=== PATIENT | female | born 1955 | race Caucasian/White ===

== ENCOUNTER 2018-11-08 05:12 | Inpatient (IN) | payer OTHER ==
[2018-11-08] VITALS (586 sets, daily range): BP systolic 148–155; BP diastolic 86–95; PULSE 98–116; TEMP 98.8–98.9; O2SAT 64–100
[~2018-11-08] VITALS: Ht 162.6 cm; Wt 110.9 kg
[2018-11-08] MEDS ORDERED: GLUCOPHAGE1000 MG PO (05:20)
[2018-11-08] MEDS ORDERED: PROTONIX20 MG PO (05:20)
[2018-11-08] MEDS ORDERED: COZAAR100 MG PO (05:20)
[2018-11-08] MEDS ORDERED: HCTZ 25MG TAB25 MG PO (05:20)
[2018-11-08] MEDS ORDERED: NORVASC 10MG10 MG PO (05:21)
[2018-11-08] MEDS ORDERED: NORMODYNE200 MG PO (05:21)
[2018-11-08] MEDS ORDERED: GLUCOTROL10 MG PO (05:21)
[2018-11-08] MEDS ORDERED: REQUIP 0.5MG0.5 MG PO (05:21)
[2018-11-08] MEDS ORDERED: ZOLOFT 100MG100 MG PO (05:22)
[2018-11-08] MEDS ORDERED: AMBIEN 10MG10 MG PO (05:22)
[2018-11-08] MEDS ORDERED: LANTUS100 U/ML SQ (05:22)
[2018-11-08] MEDS ORDERED: DESYREL 50MG50 MG PO (05:22)
[2018-11-08 05:40] LABS: BASO # 0.1 (0.0-0.2); BASO % 0.6 % (0.0-2.0); EOS # 0.3 (0.0-0.7); EOS % 2.1 % (0-4.0); GRAN # 9.6 (1.4-6.5); GRAN % 79.6 % (42.2-75.2); HEMOGLOBIN 11.7 g/dl (12.5-16.0); LYMPH # 1.4 (1.2-3.4); LYMPH % 11.2 % (20.0-51.0); MEAN CELL VOLUME 84 fl (80.0-100.0); MEAN CORPUSCULAR HEMOGLOBIN 28 pg (27.0-31.0); MEAN CORPUSCULAR HGB CONC 33 g/dl (33.0-37.0); MEAN PLATELET VOLUME 9.3 fl (7.4-10.4); MONO # 0.8 (0.1-0.6); MONO % 6.2 % (1.7-9.3); PLATELET COUNT 246 K/mm3 (130-400); RED BLOOD COUNT 4.24 M/mm3 (4.10-5.30); REDCELL DISTRIBUTION WIDTH-CV 12.7 % (11.5-14.5)
[2018-11-08 05:43] LABS: HEMATOCRIT 35.8 % (37.0-47.0)
[2018-11-08 05:50] LABS: ALBUMIN 3.7 gm/dL (3.5-5.0); BILIRUBIN,TOTAL 0.5 mg/dL (0.0-1.0); CALCIUM 9.3 mg/dL (8.4-10.2); CREATININE, serum 1.46 (0.52-1.25); POTASSIUM 4.4 mmol/L (3.4-5.0); TOTAL PROTEIN 7.1 gm/dL (6.4-8.2)
[2018-11-08 10:30] LABS: ARTERIAL BLD GAS O2 SATURATION 97.8 % (92-100); ARTERIAL BLD GAS TCO2 CT 25.9; ARTERIAL BLOOD GAS BASE EXCESS -0.1 (-2-2); ARTERIAL BLOOD GAS HCO3 24.6 meq/L (22-26); ARTERIAL BLOOD GAS PCO2 40.6 mmHg (35-45)
--- NOTE | 2018-11-08 13:30 | NUR ---
PATIENT ARRIVES TO ICU. SHE IS ORIENTED TO ROOM AND CALL LIGHT WITHIN REACH. ASSESSMENT COMPLETED. SHE IS ON 5L O2 VIA OXYMASK. WILL CONTINUE TO MONITOR
--- NOTE | 2018-11-08 15:00 | NUR ---
PATIENT HAS BEEN RESTING THIS AFTERNOON. SHE DENIES WANT TO EAT LUNCH. WILL CONTINUE TO MONITOR.
--- NOTE | 2018-11-08 18:15 | NUR ---
PATIENT TACHY AND IRREGULAR ON TELE. EKG OBTAINED AND RESULTS CALLED TO ALESSANDRO FRAGOSO. SHE STATES SHE WILL PLACE ORDERS ON THIS PATIENT.
[2018-11-08 18:49] LABS: BASO # 0.1 (0.0-0.2); BASO % 0.4 % (0.0-2.0); EOS # 0.1 (0.0-0.7); EOS % 1.1 % (0-4.0); GRAN # 8.9 (1.4-6.5); GRAN % 76.7 % (42.2-75.2); HEMATOCRIT 37.6 % (37.0-47.0); HEMOGLOBIN 12.4 g/dl (12.5-16.0); LYMPH # 1.6 (1.2-3.4); MEAN CELL VOLUME 83 fl (80.0-100.0); MEAN CORPUSCULAR HEMOGLOBIN 27 pg (27.0-31.0); MEAN CORPUSCULAR HGB CONC 33 g/dl (33.0-37.0); MEAN PLATELET VOLUME 9.4 fl (7.4-10.4); MONO # 0.9 (0.1-0.6); MONO % 7.3 % (1.7-9.3); PLATELET COUNT 245 K/mm3 (130-400); RED BLOOD COUNT 4.53 M/mm3 (4.10-5.30); REDCELL DISTRIBUTION WIDTH-CV 12.8 % (11.5-14.5)
[2018-11-08 18:59] LABS: CALCIUM 9.6 mg/dL (8.4-10.2); CREATININE, serum 1.54 (0.52-1.25); MAGNESIUM 1.7 mg/dL (1.6-2.3); POTASSIUM 3.7 mmol/L (3.4-5.0)
--- NOTE | 2018-11-08 19:00 | NUR ---
CARDIZEM AND HEPARIN GTTS STARTED WITH BOLUSES. VERIFIED WITH ANOTHER RN AT THIS TIME.
[2018-11-08 19:04] LABS: PROTHROMBIN TIME 11.9 SECONDS (9.7-12.8)
[2018-11-08 19:06] LABS: PARTIAL THROMBOPLASTIN TIME 34.6 SECONDS (26.0-37.0)
--- NOTE | 2018-11-08 19:45 | NUR ---
REPORT GIVEN TO HENRIK NIETO
--- NOTE | 2018-11-08 19:45 | NUR ---
Bedside report received from HENRIK Castillo. Wilma confirmed. Transfer of care at this time.
--- NOTE | 2018-11-08 20:00 | NUR ---
Patient is awake in bed with sister at bedside. Patient is alert and oriented and able to answer questions. She does have oxymask on currently. Patient has no complaints of pain. Assessment complete. Lungs are clear in upper ocampo with diminished bases. HR and rhythm are irregular as patient is in afib. First heart sound heard. Bowel sounds are active x4. Patient gets up to the restroom with standby assist. She is steady on her feet. Vitals have remained stable with cardizem drip continuing. Patient has no further needs at this time. Will continue to monitor. Call light within reach.
--- NOTE | 2018-11-08 22:35 | NUR ---
Dr. Vera at the bedside. States he wants amiodarone started and Cardizem stopped. Orders to be entered.
--- NOTE | 2018-11-08 23:30 | NUR ---
New IV site started in left hand as heparin and amiodarone are not compatible.
[2018-11-09] VITALS (1394 sets, daily range): BP systolic 114–123; BP diastolic 61–86; PULSE 64–105; TEMP 97.6–98.8; O2SAT 64–100
--- NOTE | 2018-11-09 | NUR ---
Patient awake at this time and up to the restroom. Assisted patient back to bed and BiPAP replaced. Vitals obtained and remain stable. Patient has no complaints of pain. No other needs at this time. Will continue to monitor. Call light within reach.
--- NOTE | 2018-11-09 04:00 | NUR ---
Patient asleep at this time. Awakens to name. Vitals obtain and remain stable. Patient is still in afib. Patient did have an episode of incontinence in the bed. Linens changed. Patient has no complaints of pain. She would like to continue sleeping. No further needs. Will continue to monitor. Call light within reach.
--- NOTE | 2018-11-09 04:33 | NUR ---
Hepxa called from lab with value of 1.10. Drip stopped. To be stopped for 2 hours then hepxa to be redrawn with PTT. Orders entered.
[2018-11-09 04:40] LABS: BASO # 0.1 (0.0-0.2); BASO % 0.6 % (0.0-2.0); EOS # 0.2 (0.0-0.7); EOS % 2.6 % (0-4.0); GRAN # 5.6 (1.4-6.5); HEMOGLOBIN 11.1 g/dl (12.5-16.0); LYMPH # 2.7 (1.2-3.4); LYMPH % 28.5 % (20.0-51.0); MEAN CELL VOLUME 84 fl (80.0-100.0); MEAN CORPUSCULAR HEMOGLOBIN 28 pg (27.0-31.0); MEAN CORPUSCULAR HGB CONC 33 g/dl (33.0-37.0); MEAN PLATELET VOLUME 9.1 fl (7.4-10.4); MONO # 0.8 (0.1-0.6); MONO % 8.1 % (1.7-9.3); PLATELET COUNT 238 K/mm3 (130-400); RED BLOOD COUNT 3.99 M/mm3 (4.10-5.30); REDCELL DISTRIBUTION WIDTH-CV 12.9 % (11.5-14.5)
[2018-11-09 04:45] LABS: HEMATOCRIT 33.3 % (37.0-47.0)
[2018-11-09 04:48] LABS: ALBUMIN 3.7 gm/dL (3.5-5.0); BILIRUBIN,TOTAL 0.8 mg/dL (0.0-1.0); CALCIUM 9.2 mg/dL (8.4-10.2); CREATININE, serum 1.75 (0.52-1.25); POTASSIUM 3.2 mmol/L (3.4-5.0); TOTAL PROTEIN 7.1 gm/dL (6.4-8.2)
--- NOTE | 2018-11-09 07:20 | NUR ---
Bedside report given to HENRIK Chaidez. All medications and lines reviewed. transfer of care at this time
[2018-11-09 07:49] LABS: PARTIAL THROMBOPLASTIN TIME 19.7 SECONDS (26.0-37.0)
--- NOTE | 2018-11-09 08:00 | NUR ---
Heparin gtt restarted at 1650 units/hr=16.5ml/hr verified by HENRIK Castillo.
--- NOTE | 2018-11-09 08:00 | NUR ---
Assessment complete, patient resting quietly in bed on bipap.
--- NOTE | 2018-11-09 08:42 | NUR ---
SW attempted to meet with the patient, but due to the patient's condition was unable. SW will attempt at a later time.
--- NOTE | 2018-11-09 09:24 | NUR ---
SW met with the patient to discuss a discharge plan. The pt lives in [place] with a nephew, Saman. The pt has a CPAP and no other DME and reports independence with ADLs. The pt's PCP is Dr. Tramaine Azevedo in [place], [place]. The pt receives her medications from [facility] and reports she may need a medication voucher. The pt is self-pay. Pt reports she has applied for disablity but was denied and she is appealing. The pt does not have advanced directives in the EMR but was interested in obtaining a DPOA-HC. SW provided the form. The pt plans to return home upon discharge. SW will continue to follow. Solitario (sister) Saman (nephew)
--- NOTE | 2018-11-09 15:15 | NUR ---
Patient converted to SR.
--- NOTE | 2018-11-09 19:07 | NUR ---
Bedside report given to HENRIK Maher.
--- NOTE | 2018-11-09 19:10 | NUR ---
Bedside report received from HENRIK Chaidez
--- NOTE | 2018-11-09 20:00 | NUR ---
Patient is awake in bed talking to her sister and nephew who are at bedside. Patient is alert and oriented x4. No complaints of pain and no signs of distress. Assessment complete. Lungs are diminished in all ocampo with upper lobes being clear. HR and rhythm are regular and patient has an audible murmur. Bowel sounds are active x4. Discussed with family the patient's afib and how it can cause the pulmonary edema she is having, spoke about the ablation procedure she had and possible need for PT if patient is having trouble with endurance. Patient has no further needs at this time. Will continue to monitor. Call light within reach.
[2018-11-10] VITALS (723 sets, daily range): BP systolic 118–147; BP diastolic 56–83; PULSE 60–76; TEMP 97.6–98.5; O2SAT 80–100
--- NOTE | 2018-11-10 | NUR ---
Patient asleep on the BiPAP at this time. Awakens to name. No complaints of pain or signs of distress. Vitals obtained and remain WNL. Patient has no further needs at this time. Will continue to monitor. Call light within reach.
[2018-11-10 03:10] LABS: BASO # 0.1 (0.0-0.2); BASO % 0.6 % (0.0-2.0); EOS # 0.4 (0.0-0.7); EOS % 3.3 % (0-4.0); GRAN # 7.1 (1.4-6.5); GRAN % 61.1 % (42.2-75.2); HEMOGLOBIN 11.2 g/dl (12.5-16.0); LYMPH # 2.9 (1.2-3.4); LYMPH % 24.7 % (20.0-51.0); MEAN CELL VOLUME 84 fl (80.0-100.0); MEAN CORPUSCULAR HEMOGLOBIN 28 pg (27.0-31.0); MEAN CORPUSCULAR HGB CONC 33 g/dl (33.0-37.0); MEAN PLATELET VOLUME 9.2 fl (7.4-10.4); MONO # 1.2 (0.1-0.6); PLATELET COUNT 257 K/mm3 (130-400); RED BLOOD COUNT 4.05 M/mm3 (4.10-5.30); REDCELL DISTRIBUTION WIDTH-CV 12.8 % (11.5-14.5)
[2018-11-10 03:14] LABS: HEMATOCRIT 33.8 % (37.0-47.0)
[2018-11-10 03:22] LABS: CALCIUM 9.2 mg/dL (8.4-10.2); CREATININE, serum 2.45 (0.52-1.25); MAGNESIUM 2.1 mg/dL (1.6-2.3); POTASSIUM 3.3 mmol/L (3.4-5.0)
--- NOTE | 2018-11-10 04:00 | NUR ---
Patient continues to rest comfortably at this time on the BiPAP. Awakens to name. Vitals obtained. Has no complaints of pain or signs of distress. Vitals remain WNL. Will continue to monitor. Call light within reach.
--- NOTE | 2018-11-10 07:17 | NUR ---
Report from HENRIK Maher.
--- NOTE | 2018-11-10 07:20 | NUR ---
Bedside report given to HENRIK Chaidez
--- NOTE | 2018-11-10 07:30 | NUR ---
Assessment complete, patient denies needs at this time, call light within reach.
--- NOTE | 2018-11-10 10:00 | NUR ---
O2 sats 99% on 3L/NC, O@ decreased to 2L/NC.
--- NOTE | 2018-11-10 10:25 | NUR ---
Initial visit; Patient thanked Finance Broker for looking in on her and offering prayer and additional spiritual care.
--- NOTE | 2018-11-10 13:37 | NUR ---
Patient walking in halls with PT.
--- NOTE | 2018-11-10 15:01 | NUR ---
Patient resting quietly in bed, denies needs at this time, dulce light within reach.
--- NOTE | 2018-11-10 15:39 | NUR ---
The pt is to transfer to medical floor. SW to follow for discharge recommendations.
--- NOTE | 2018-11-10 19:14 | NUR ---
Bedside report given to HENRIK Becerra.
--- NOTE | 2018-11-10 20:25 | NUR ---
Patient request for ELEMENTARY CLASSROOM TEACHER to come back , she had a visitor. Patient will call ELEMENTARY CLASSROOM TEACHER when ready
[2018-11-11] VITALS (312 sets, daily range): BP systolic 139–155; BP diastolic 48–62; PULSE 62–76; TEMP 97.7–98.5; O2SAT 72–100
[2018-11-11 05:33] LABS: CALCIUM 9.2 mg/dL (8.4-10.2); CREATININE, serum 2.22 (0.52-1.25); POTASSIUM 3.6 mmol/L (3.4-5.0)
--- NOTE | 2018-11-11 07:25 | NUR ---
BEDSIDE REPORT TO HENRIK LYNCH.
--- NOTE | 2018-11-11 07:30 | NUR ---
Bedside report received from HENRIK Becerra.
--- NOTE | 2018-11-11 08:45 | NUR ---
Assessment completed. Pt watching tv in bed. Denies any pain at this time. Pt states she feels better than when she first came to the hospital. Pt denies any SOB, on RA, sats greater than 90%. Pt able to move around room independently. Breakfast ordered at this time. Discussed plan of care r/t doctors rounding and medications this shift. Pt verbalized understanding.
--- NOTE | 2018-11-11 11:08 | NUR ---
Follow-up visit; Patient doing well and thanked Real Estate Sales Agent for looking in on her and offering support and spiritual care.
--- NOTE | 2018-11-11 12:00 | NUR ---
Pt sitting on side of bed, watching tv. Lunch ordered. Pt has no complaints at this time. VSS. Call light in reach.
--- NOTE | 2018-11-11 16:18 | NUR ---
Report given to Medical floor RnSurekha.
--- NOTE | 2018-11-11 16:30 | NUR ---
PT ADMITTED TO FLOOR AT THIS TIME.
--- NOTE | 2018-11-11 16:30 | NUR ---
Pt transferred to room 308 via wheelchair. Pt in recliner. Call light in reach. Menu given to pt to order dinner. HENRIK Irby updated on pt status.
--- NOTE | 2018-11-11 19:00 | NUR ---
PT HAD UNEVENTFUL AFTERNOON AFTER ADMISSION. NO C/O PAIN. SITTING IN RECLINER. NO CONSENS OR ISSUES VOICED.
--- NOTE | 2018-11-11 21:30 | NUR ---
PT RESTING IN BED A+OX4. REPORTS NO PAIN AT THIS TIME. BIPAP ON. SHIFT ASSESSMENT COMPLETE. NO CONCERNS. HEART MURMUR NOTED. VSS. NO NEEDS AT THIS TIEM. CALL LIGHT IN REACH
--- NOTE | 2018-11-12 03:14 | NUR ---
pt reported a headache prn tylenol ordered and given. pt sleeping since. vss. reports no needs call light in reach
[2018-11-12 03:20] VITALS: BP 133/43; PULSE 73; TEMP 98.1
--- NOTE | 2018-11-12 05:43 | NUR ---
PT HAD AN UNEVENTFUL NIGHT. TYLENOL GIVEN FOR 3/10 OROZCO., PT SLEPT MOST OF THE NIGHT. CPAP ON DURING NIGHT. SLIGHT SWELLING IN BILATERAL LEGS. NO CONCERNS AT THIS TIME. CALL LIGHT IN REACH.
[2018-11-12 05:56] LABS: HEMOGLOBIN 10.5 g/dl (12.5-16.0); MEAN CELL VOLUME 84 fl (80.0-100.0); MEAN CORPUSCULAR HEMOGLOBIN 28 pg (27.0-31.0); MEAN CORPUSCULAR HGB CONC 33 g/dl (33.0-37.0); MEAN PLATELET VOLUME 9.4 fl (7.4-10.4); PLATELET COUNT 268 K/mm3 (130-400); RED BLOOD COUNT 3.78 M/mm3 (4.10-5.30); REDCELL DISTRIBUTION WIDTH-CV 12.8 % (11.5-14.5)
[2018-11-12 05:57] LABS: HEMATOCRIT 31.9 % (37.0-47.0)
[2018-11-12 06:04] LABS: CALCIUM 9.3 mg/dL (8.4-10.2); CREATININE, serum 2.14 (0.52-1.25)
--- NOTE | 2018-11-12 06:55 | NUR ---
report given to akhil dumont. pt reports no needs
[2018-11-12 07:54] VITALS: BP 139/50; PULSE 63; TEMP 98
[2018-11-12] MEDS ORDERED: ASPIRIN E.C. 8181 MG PO (11:58)
[2018-11-12] MEDS ORDERED: ELIQUIS 2.5 PO (11:59)
[2018-11-12] MEDS ORDERED: CORDARONE200 MG/TAB PO (11:59)
[2018-11-12] MEDS ORDERED: HCTZ 25MG TAB25 MG PO (12:01)
[2018-11-12] MEDS ORDERED: GLUCOPHAGE1000 MG PO (12:01)
[2018-11-12] MEDS ORDERED: NORMODYNE200 MG PO (12:01)
[2018-11-12] MEDS ORDERED: LANTUS100 U/ML SQ (12:01)
[2018-11-12] MEDS ORDERED: COZAAR100 MG PO (12:01)
[2018-11-12] MEDS ORDERED: ZOLOFT 100MG100 MG PO (12:01)
[2018-11-12] MEDS ORDERED: REQUIP 0.5MG0.5 MG PO (12:01)
[2018-11-12] MEDS ORDERED: GLUCOTROL10 MG PO (12:01)
[2018-11-12] MEDS ORDERED: NORVASC 10MG10 MG PO (12:01)
--- NOTE | 2018-11-12 16:35 | NUR ---
Pt discharge instructions discussed and reviewed, all questions answered. pt verbalizes understanding, no other questions. RAC INT IV discontinued, catheter tip intact, no complications. Denies other needs.
--- NOTE | 2018-11-12 16:36 | NUR ---
pt escorted out via wheelchair by Jane.
--- NOTE | 2018-11-14 10:26 | NUR ---
sheltered workshop worker provided Maday at [facility] with a Free 30 day supply card for Eloquis.
== END 2018-11-12 16:37 | disposition home or self-care (01) | DRG 189 ==
LOC: COL.ER 05:12 → ICU 07:51 → MEDICAL 11-11 17:05
PROVIDERS: Emergency Medicine; Internal Medicine Critical Care Medicine; Nurse Practitioner Family; Physician Assistant; ADMIT Internal Medicine
DX: J96.01 Acute respiratory failure with hypoxia (principal); J81.0 Acute pulmonary edema; I50.33 Acute on chronic diastolic (congestive) heart failure; Z68.41 Body mass index [BMI] 40.0-44.9, adult; I13.0 Hypertensive heart and chronic kidney disease with heart failure and stage 1 through stage 4 chronic kidney disease, or unspecified chronic kidney disease; I38 Endocarditis, valve unspecified; N17.9 Acute kidney failure, unspecified; E78.5 Hyperlipidemia, unspecified; G47.33 Obstructive sleep apnea (adult) (pediatric); I34.0 Nonrheumatic mitral (valve) insufficiency; I48.0 Paroxysmal atrial fibrillation; I35.0 Nonrheumatic aortic (valve) stenosis; K21.9 Gastro-esophageal reflux disease without esophagitis; I50.9 Heart failure, unspecified; E87.6 Hypokalemia; E11.22 Type 2 diabetes mellitus with diabetic chronic kidney disease; E11.65 Type 2 diabetes mellitus with hyperglycemia; N18.3 Chronic kidney disease, stage 3 (moderate); E66.9 Obesity, unspecified; G47.00 Insomnia, unspecified; G40.909 Epilepsy, unspecified, not intractable, without status epilepticus; Z79.4 Long term (current) use of insulin; Z88.0 Allergy status to penicillin; Z86.73 Personal history of transient ischemic attack (TIA), and cerebral infarction without residual deficits
CPT/HCPCS: 99222; 99223-AI; 99232-AI; 99233-AI; 99239; A4216; J0282; J0456; J0696; J1644; J1815; J1940; J3475; J7030; J7050; J7060; Q9967

== ENCOUNTER → 2018-11-14 | Outpatient (CLI) | payer OTHER ==
[~2018-11-14] MED LIST: AMBIEN 10MG10 MG PO; ASPIRIN E.C. 8181 MG PO; CORDARONE200 MG/TAB PO; COZAAR100 MG PO; DESYREL 50MG50 MG PO; ELIQUIS 2.5 PO; GLUCOPHAGE1000 MG PO; GLUCOTROL10 MG PO; HCTZ 25MG TAB25 MG PO; LANTUS100 U/ML SQ; NORMODYNE200 MG PO; NORVASC 10MG10 MG PO; PROTONIX20 MG PO; REQUIP 0.5MG0.5 MG PO; ZOLOFT 100MG100 MG PO
[2018-11-14 18:39] LABS: CALCIUM 9.8 mg/dL (8.4-10.2); CREATININE, serum 1.98 (0.52-1.25); POTASSIUM 4.1 mmol/L (3.4-5.0)
== END ==
LOC: COL.LAB 17:28
PROVIDERS: Internal Medicine
DX: J96.01 Acute respiratory failure with hypoxia (principal)

== ENCOUNTER 2018-12-06 23:49 | Observation (INO) | payer OTHER ==
[~2018-12-06] VITALS: Ht 162.6 cm; Wt 112.5 kg
[2018-12-07] VITALS (7 sets, daily range): BP systolic 126–155; BP diastolic 42–65; PULSE 57–72; TEMP 98–99
[2018-12-07 00:14] LABS: BASO # 0.1 (0.0-0.2); BASO % 0.7 % (0.0-2.0); EOS # 0.4 (0.0-0.7); EOS % 3.4 % (0-4.0); GRAN # 7.7 (1.4-6.5); GRAN % 68.6 % (42.2-75.2); HEMATOCRIT 32.8 % (37.0-47.0); HEMOGLOBIN 10.8 g/dl (12.5-16.0); LYMPH # 2.2 (1.2-3.4); LYMPH % 19.3 % (20.0-51.0); MEAN CELL VOLUME 84 fl (80.0-100.0); MEAN CORPUSCULAR HEMOGLOBIN 28 pg (27.0-31.0); MEAN CORPUSCULAR HGB CONC 33 g/dl (33.0-37.0); MEAN PLATELET VOLUME 8.8 fl (7.4-10.4); MONO # 0.9 (0.1-0.6); MONO % 7.6 % (1.7-9.3); PLATELET COUNT 293 K/mm3 (130-400); RED BLOOD COUNT 3.92 M/mm3 (4.10-5.30); REDCELL DISTRIBUTION WIDTH-CV 13.3 % (11.5-14.5)
[2018-12-07 00:19] LABS: INR 1.2 (0.8-3.0); PROTHROMBIN TIME 13.9 SECONDS (9.7-12.8)
[2018-12-07 00:20] LABS: ARTERIAL BLD GAS O2 SATURATION 92.8 % (92-100); ARTERIAL BLD GAS TCO2 CT 25.8; ARTERIAL BLOOD GAS BASE EXCESS 0.9 (-2-2); ARTERIAL BLOOD GAS HCO3 24.7 meq/L (22-26); ARTERIAL BLOOD GAS PCO2 36.2 mmHg (35-45); ARTERIAL BLOOD GAS pH 7.45 (7.35-7.45)
[2018-12-07 00:21] LABS: PARTIAL THROMBOPLASTIN TIME 41.8 SECONDS (26.0-37.0)
[2018-12-07 00:25] LABS: ALANINE AMINOTRANSFERASE 11 U/L (9-52); ALBUMIN 4.1 gm/dL (3.5-5.0); ALKALINE PHOSPHATASE 119 U/L (50-136); ANION GAP 11 mmol/L (7-16); AST,SGOT 19 U/L (15-37); BILIRUBIN,TOTAL 0.8 mg/dL (0.0-1.0); BLOOD UREA NITROGEN 37 mg/dL (7-17); CALCIUM 9.3 mg/dL (8.4-10.2); CARBON DIOXIDE 28 mmol/L (22-30); CHLORIDE 105 mmol/L (98-107); CREATININE, serum 1.93 (0.52-1.25); GLUCOSE 106 mg/dL (74-106); POTASSIUM 3.8 mmol/L (3.4-5.0); SODIUM 144 mmol/L (137-145); TOTAL PROTEIN 7.4 gm/dL (6.4-8.2)
[2018-12-07] MEDS ORDERED: CORDARONE200 MG/TAB PO (00:32)
[2018-12-07] MEDS ORDERED: NORMODYNE200 MG PO (00:33)
[2018-12-07 00:37] LABS: TROPONIN-I < 0.012 ng/mL (0.000-0.035)
[2018-12-07 02:05] LABS: COLLECTION METHOD CLEAN CATCH
[2018-12-07 02:15] LABS: PH 5 (5-8); SQUAMOUS EPITHELIAL 0-2 /hpf; URINE APPEARANCE Clear; URINE BACTERIA None Seen /hpf; URINE BILIRUBIN Negative (NEGATIVE); URINE BLOOD 1+ (NEGATIVE); URINE COLOR Yellow; URINE GLUCOSE Negative (NEGATIVE); URINE KETONE Negative (NEGATIVE); URINE LEUKOCYTE ESTERASE Negative (NEGATIVE); URINE NITRATE Negative (NEGATIVE); URINE PROTEIN(semi-quant) 1+ (NEGATIVE); URINE UROBILINOGEN Negative (NEGATIVE)
--- NOTE | 2018-12-07 11:35 | NUR ---
Initial visit; Patient thanked Direct Care Specialist for looking in on her and offering encouragement and prayer. Patient states she is feeling much better.
[2018-12-07 15:25] LABS: URINE PROTEIN:CREAT RATIO 0.39 (0.00-0.14)
--- NOTE | 2018-12-07 15:44 | NUR ---
LUANNE met with patient to discuss discharge planning. Patient lives independently at home with her nephew. Patient's PCP is Dr Rubio and she obtains prescriptions from [facility]. Patient reports she is on a program through [employer] that allows her medications to be low in cost or free. Patient does not have insurance but has applied for Medicaid. Patient does not use any DME or home health services at this time. SW does not anticiapte any discharge needs but will continue to follow as needed.
--- NOTE | 2018-12-07 18:00 | NUR ---
Patient has been doing well today. She is down to one liter of O2 per nasal canula. She started the shift at 3 liters. She has been up independently in the room. No complaints of pain. No complaints of pain. She is hoping to be discharged tomorrow.
[2018-12-08 03:37] VITALS: BP 120/43; PULSE 53; TEMP 98.6
[2018-12-08 06:47] LABS: BASO # 0.1 (0.0-0.2); BASO % 0.7 % (0.0-2.0); EOS # 0.3 (0.0-0.7); EOS % 4.8 % (0-4.0); GRAN # 4.2 (1.4-6.5); GRAN % 58.4 % (42.2-75.2); LYMPH # 1.9 (1.2-3.4); LYMPH % 26.3 % (20.0-51.0); MEAN CELL VOLUME 85 fl (80.0-100.0); MEAN CORPUSCULAR HGB CONC 32 g/dl (33.0-37.0); MONO # 0.7 (0.1-0.6); MONO % 9.5 % (1.7-9.3); PLATELET COUNT 242 K/mm3 (130-400); RED BLOOD COUNT 3.48 M/mm3 (4.10-5.30); REDCELL DISTRIBUTION WIDTH-CV 13.6 % (11.5-14.5)
[2018-12-08 06:56] LABS: HEMATOCRIT 29.6 % (37.0-47.0); HEMOGLOBIN 9.5 g/dl (12.5-16.0); MEAN CORPUSCULAR HEMOGLOBIN 27 pg (27.0-31.0)
[2018-12-08 07:00] LABS: CALCIUM 9.3 mg/dL (8.4-10.2); CREATININE, serum 2.05 (0.52-1.25); POTASSIUM 3.5 mmol/L (3.4-5.0)
[2018-12-08 07:28] VITALS: BP 113/44; PULSE 55; TEMP 98
--- NOTE | 2018-12-08 08:40 | NUR ---
Pt resting in room, no C/O pain at this time, shift assessments complete, left Pt call light in reach, bed in lowest position.
--- NOTE | 2018-12-08 09:36 | NUR ---
Follow-up visit; Patient seems to be healing well and thanked for looking in on her.
--- NOTE | 2018-12-08 09:40 | NUR ---
PT SITTING IN CHAIR @ REST ON ROOM AIR, 93% WALKED APPROXIMATELY 50 FEET ON RA SPO2 86% O2 ON @ 2 LPM SPO2 97% WITH RECOVERY POST 2-3 MINUTES. PT FELT WEAK, BUT BETTER AFTER RESTING.
[2018-12-08 11:41] VITALS: BP 121/42; PULSE 56; TEMP 97.7
[2018-12-08] MEDS ORDERED: LASIX 40MG TABL40 MG PO (12:09)
--- NOTE | 2018-12-08 14:41 | NUR ---
LUANNE met with patient about DME choice for home O2. Patient chose [facility]. LUANNE contacted [facility] and faxed the order.
--- NOTE | 2018-12-08 17:58 | NUR ---
Pt discharged to home, escorted to exit, left with family via private auto.
== END 2018-12-08 18:00 | disposition home or self-care (01) ==
LOC: COL.ER 23:49 → MEDICAL 12-07 01:11
PROVIDERS: Emergency Medicine; Nurse Practitioner; ADMIT Hospitalist
DX: J81.1 Chronic pulmonary edema (principal); R09.02 Hypoxemia; I12.9 Hypertensive chronic kidney disease with stage 1 through stage 4 chronic kidney disease, or unspecified chronic kidney disease; E11.22 Type 2 diabetes mellitus with diabetic chronic kidney disease; N18.3 Chronic kidney disease, stage 3 (moderate); G47.33 Obstructive sleep apnea (adult) (pediatric); E78.5 Hyperlipidemia, unspecified; K76.0 Fatty (change of) liver, not elsewhere classified; I08.0 Rheumatic disorders of both mitral and aortic valves; I16.0 Hypertensive urgency; K21.9 Gastro-esophageal reflux disease without esophagitis; F32.9 Major depressive disorder, single episode, unspecified; I48.0 Paroxysmal atrial fibrillation; Z79.4 Long term (current) use of insulin; Z86.73 Personal history of transient ischemic attack (TIA), and cerebral infarction without residual deficits; Z79.01 Long term (current) use of anticoagulants; Z79.82 Long term (current) use of aspirin; Z80.1 Family history of malignant neoplasm of trachea, bronchus and lung; Z82.49 Family history of ischemic heart disease and other diseases of the circulatory system; Z88.0 Allergy status to penicillin
CPT/HCPCS: J1815; J1940

== ENCOUNTER → 2018-12-20 | Outpatient (CLI) | payer OTHER ==
[~2018-12-20] MED LIST changes: +LASIX 40MG TABL40 MG PO
[2018-12-20 17:55] LABS: CALCIUM 9.6 mg/dL (8.4-10.2); CREATININE, serum 2.14 (0.52-1.25); POTASSIUM 4.4 mmol/L (3.4-5.0)
== END ==
LOC: ZCOL.LAB 17:11
PROVIDERS: Family Medicine
DX: I10 Essential (primary) hypertension (principal); E11.9 Type 2 diabetes mellitus without complications; N28.9 Disorder of kidney and ureter, unspecified

== ENCOUNTER → 2019-02-15 | Outpatient (CLI) | payer MEDICAID ==
[~2019-02-15] VITALS: Ht 162.6 cm; Wt 113.6 kg
[~2019-02-15] MED LIST changes: +MELATONIN5 M1 SL; +NORMODYNE300 MG PO; +SINGULAIR 110 MG/TAB PO; +ZYRTEC 10MG10 MG PO
[2019-02-15 10:58] VITALS: BP 135/70; PULSE 69
[2019-02-15 11:56] VITALS: BP 165/76; PULSE 60
[2019-02-15 12:01] VITALS: BP 143/60; PULSE 67
[2019-02-15 12:02] VITALS: BP 148/57; PULSE 69
[2019-02-15 12:03] VITALS: BP 145/66; PULSE 69
== END ==
LOC: COL.CARD 10:45
DX: I50.22 Chronic systolic (congestive) heart failure (principal)
CPT/HCPCS: A9500; J2785

== ENCOUNTER → 2019-03-23 | Outpatient (CLI) | payer MEDICAID ==
[2019-03-23 18:14] LABS: BASO # 0.1 (0.0-0.2); BASO % 0.8 % (0.0-2.0); EOS # 0.2 (0.0-0.7); EOS % 2.4 % (0-4.0); GRAN % 66.8 % (42.2-75.2); HEMATOCRIT 38.6 % (37.0-47.0); HEMOGLOBIN 12.3 g/dl (12.5-16.0); LYMPH # 2.1 (1.2-3.4); LYMPH % 23.1 % (20.0-51.0); MEAN CELL VOLUME 83 fl (80.0-100.0); MEAN CORPUSCULAR HEMOGLOBIN 27 pg (27.0-31.0); MEAN CORPUSCULAR HGB CONC 32 g/dl (33.0-37.0); MEAN PLATELET VOLUME 9.8 fl (7.4-10.4); MONO # 0.6 (0.1-0.6); MONO % 6.7 % (1.7-9.3); PLATELET COUNT 266 K/mm3 (130-400); RED BLOOD COUNT 4.65 M/mm3 (4.10-5.30); REDCELL DISTRIBUTION WIDTH-CV 14.2 % (11.5-14.5)
[2019-03-23 18:23] LABS: ALBUMIN 4.4 gm/dL (3.5-5.0); BILIRUBIN,TOTAL 0.4 mg/dL (0.0-1.0); CALCIUM 9.8 mg/dL (8.4-10.2); CREATININE, serum 2.43 (0.52-1.25); POTASSIUM 4.4 mmol/L (3.4-5.0); TOTAL PROTEIN 7.7 gm/dL (6.4-8.2)
[2019-03-23 18:32] LABS: C-REACTIVE PROTEIN 0.5 mg/dL (0.0-0.9)
[2019-03-23 18:51] LABS: THYROID STIMULATING HORMONE 19.1 uIU/mL (0.465-4.680)
== END ==
LOC: ZCOL.LAB 17:20
PROVIDERS: Family Medicine
DX: R32 Unspecified urinary incontinence (principal); R53.1 Weakness

== ENCOUNTER 2019-09-23 16:03 | Inpatient (IN) | payer MEDICAID ==
[~2019-09-23] VITALS: Ht 162.6 cm; Wt 125.1 kg
[2019-09-23] VITALS (17 sets, daily range): BP systolic 139–142; BP diastolic 65–73; PULSE 59–62; TEMP 97.7; O2SAT 95–99
[2019-09-23 16:55] LABS: BASO # 0.1 (0.0-0.2); BASO % 0.5 % (0.0-2.0); EOS # 0.2 (0.0-0.7); EOS % 1.6 % (0-4.0); GRAN # 7.3 (1.4-6.5); GRAN % 77.4 % (42.2-75.2); HEMOGLOBIN 12.6 g/dl (12.5-16.0); LYMPH # 1.2 (1.2-3.4); MEAN CELL VOLUME 84 fl (80.0-100.0); MEAN CORPUSCULAR HEMOGLOBIN 27 pg (27.0-31.0); MEAN CORPUSCULAR HGB CONC 32 g/dl (33.0-37.0); MONO # 0.6 (0.1-0.6); MONO % 6.8 % (1.7-9.3); PLATELET COUNT 289 K/mm3 (130-400); RED BLOOD COUNT 4.66 M/mm3 (4.10-5.30); REDCELL DISTRIBUTION WIDTH-CV 13.9 % (11.5-14.5)
[2019-09-23 17:07] LABS: ACETONE,SERUM NEGATIVE
[2019-09-23 17:11] LABS: ALANINE AMINOTRANSFERASE 30 U/L (4-34); ALKALINE PHOSPHATASE 395 U/L (50-136); ANION GAP 14 mmol/L (7-16); AST,SGOT 30 U/L (15-37); BLOOD UREA NITROGEN 50 mg/dL (7-17); C-REACTIVE PROTEIN 0.8 mg/dL (0.0-0.9); CALCIUM 9.1 mg/dL (8.4-10.2); CARBON DIOXIDE 28 mmol/L (22-30); CREATININE, serum 2.35 (0.52-1.25); POTASSIUM 5.3 mmol/L (3.4-5.0); SODIUM 122 mmol/L (137-145); TOTAL PROTEIN 7.2 gm/dL (6.4-8.2)
[2019-09-23 17:21] LABS: GLUCOSE 941 mg/dL (74-106)
[2019-09-23 17:23] LABS: CHLORIDE 80 mmol/L (98-107); TROPONIN-I < 0.012 ng/mL (0.000-0.035)
[2019-09-23] MEDS ORDERED: ASPIRIN E.C. 8181 MG PO (17:26)
[2019-09-23] MEDS ORDERED: GLUCOPHAGE500 MG/TAB PO (17:30)
[2019-09-23 18:12] LABS: COLLECTION METHOD CLEAN CATCH
[2019-09-23 18:28] LABS: PH 6 (5-8); SQUAMOUS EPITHELIAL 0-2 /hpf; URINE APPEARANCE Clear; URINE BACTERIA Rare /hpf; URINE BILIRUBIN Negative (NEGATIVE); URINE BLOOD Negative (NEGATIVE); URINE COLOR Straw; URINE GLUCOSE 3+ (NEGATIVE); URINE KETONE Negative (NEGATIVE); URINE LEUKOCYTE ESTERASE Negative (NEGATIVE); URINE NITRATE Negative (NEGATIVE); URINE PROTEIN(semi-quant) Negative (NEGATIVE); URINE RBC 0-2 /hpf; URINE UROBILINOGEN Negative (NEGATIVE)
[2019-09-23] MEDS ORDERED: SINGULAIR 110 MG/TAB PO (18:57)
[2019-09-23] MEDS ORDERED: GLUCOPHAGE XR500 M1 PO (18:59)
[2019-09-23 19:28] LABS: MAGNESIUM 2.4 mg/dL (1.6-2.3); PHOSPHOROUS 4.9 mg/dL (2.5-4.5)
--- NOTE | 2019-09-23 21:45 | NUR ---
RECEIVED PT FROM ED WITH INSULIN DRIP AT 5 UNITS/HR.
[2019-09-23 21:47] LABS: CALCIUM 9.2 mg/dL (8.4-10.2); CREATININE, serum 2.33 (0.52-1.25); POTASSIUM 4.1 mmol/L (3.4-5.0)
--- NOTE | 2019-09-23 22:40 | NUR ---
HOLD FOR 30 MINS AND DECREASE TO 3 UNITS/HR PER PROTOCOL.
[2019-09-23 23:51] LABS: CREATININE, serum 2.17 (0.52-1.25); POTASSIUM 3.7 mmol/L (3.4-5.0)
[2019-09-24] VITALS (437 sets, daily range): BP systolic 112–116; BP diastolic 49–53; PULSE 59–61; TEMP 98–98.3; O2SAT 92–100
[2019-09-24 01:14] LABS: CALCIUM 8.7 mg/dL (8.4-10.2); CREATININE, serum 2.22 (0.52-1.25); POTASSIUM 3.6 mmol/L (3.4-5.0)
--- NOTE | 2019-09-24 01:34 | NUR ---
2124 - report received from HENRIK Rider. 2144 - pt arrived in unit, alert and oriented x4, on room air, denies any pain or SOB but complais of right shoulder discomfort from previous fall. pr arrived with Insulin drip running at 5 units/hr with lates blood sugar of 403 prior to arrival in unit. CATALYST SUPERVISOR called and notifeid of pt's arrival. 44 - pt's BS at 217, CATALYST SUPERVISOR notified and orders to transition to subcutaneous Insulin. Levemir given as ordred and tylenol given for shoulder discomfort.
[2019-09-24 06:30] LABS: BASO % 0.4 % (0.0-2.0); EOS # 0.4 (0.0-0.7); EOS % 3.8 % (0-4.0); GRAN # 5.9 (1.4-6.5); GRAN % 62.7 % (42.2-75.2); LYMPH # 2.4 (1.2-3.4); LYMPH % 25.2 % (20.0-51.0); MEAN CELL VOLUME 80 fl (80.0-100.0); MEAN CORPUSCULAR HEMOGLOBIN 27 pg (27.0-31.0); MEAN CORPUSCULAR HGB CONC 34 g/dl (33.0-37.0); MEAN PLATELET VOLUME 9.5 fl (7.4-10.4); MONO # 0.7 (0.1-0.6); MONO % 7.3 % (1.7-9.3); PLATELET COUNT 253 K/mm3 (130-400); RED BLOOD COUNT 4.01 M/mm3 (4.10-5.30); REDCELL DISTRIBUTION WIDTH-CV 13.9 % (11.5-14.5)
[2019-09-24 06:32] LABS: HEMATOCRIT 32.2 % (37.0-47.0)
[2019-09-24 06:42] LABS: CALCIUM 8.8 mg/dL (8.4-10.2); CREATININE, serum 2.13 (0.52-1.25); POTASSIUM 3.3 mmol/L (3.4-5.0)
--- NOTE | 2019-09-24 07:29 | NUR ---
REPORT GIVEN TO HENRIK HUDDLESTON.
[2019-09-24] MEDS ORDERED: SINGULAIR 110 MG/TAB PO (11:31)
[2019-09-24] MEDS ORDERED: ZOLOFT 100MG100 MG PO (11:31)
[2019-09-24] MEDS ORDERED: GLUCOPHAGE XR500 M1 PO (11:31)
[2019-09-24] MEDS ORDERED: LANTUS100 U/ML SQ (11:32)
[2019-09-24] MEDS ORDERED: GLUCOTROL10 MG PO (11:32)
[2019-09-24] MEDS ORDERED: NYSTATIN POWDER30 GM TOP (11:33)
--- NOTE | 2019-09-24 12:00 | NUR ---
DISCHARGE INSTRUCTIONS REVIEWED WITH PATIENT. IV DISCONTINUED. ASSISTED PATIENT IN GATHERING BELONGINGS. TRANSPORTED PATIENT VIA WHEELCHAIR TO ER ENTRANCE TO AWAIT HER NIECE TO PICK HER UP. NIECE ARRIVED 25 MINS LATER. ASSISTED PATIENT INTO VEHICLE. PT'S JOSE A DISCHARGED WITH PATIENT.
== END 2019-09-24 12:35 | disposition home or self-care (01) | DRG 638 ==
LOC: COL.ER 16:03 → IMCU 18:26
PROVIDERS: Emergency Medicine; Nurse Practitioner Family; ADMIT Student in an Organized Health Care Education/Training Program
DX: E11.00 Type 2 diabetes mellitus with hyperosmolarity without nonketotic hyperglycemic-hyperosmolar coma (NKHHC) (principal); E87.1 Hypo-osmolality and hyponatremia; E11.22 Type 2 diabetes mellitus with diabetic chronic kidney disease; N18.9 Chronic kidney disease, unspecified; E11.65 Type 2 diabetes mellitus with hyperglycemia; E78.5 Hyperlipidemia, unspecified; I48.91 Unspecified atrial fibrillation; I35.0 Nonrheumatic aortic (valve) stenosis; G47.33 Obstructive sleep apnea (adult) (pediatric); I34.0 Nonrheumatic mitral (valve) insufficiency; K21.9 Gastro-esophageal reflux disease without esophagitis; F32.9 Major depressive disorder, single episode, unspecified; K76.0 Fatty (change of) liver, not elsewhere classified; I95.1 Orthostatic hypotension; E87.5 Hyperkalemia; G47.00 Insomnia, unspecified; B37.3 Candidiasis of vulva and vagina; M25.511 Pain in right shoulder; Z86.73 Personal history of transient ischemic attack (TIA), and cerebral infarction without residual deficits; Z79.4 Long term (current) use of insulin; Z79.82 Long term (current) use of aspirin
CPT/HCPCS: 99223-AI; J1815; J7030

== ENCOUNTER → 2019-12-07 | Outpatient (CLI) | payer MEDICARE, OTHER, MEDICAID ==
[~2019-12-07] MED LIST changes: +GLUCOPHAGE XR500 M1 PO; +GLUCOPHAGE500 MG/TAB PO; +NYSTATIN POWDER30 GM TOP
[2019-12-07 11:55] LABS: ALBUMIN 4.1 gm/dL (3.5-5.0); BILIRUBIN,TOTAL 0.7 mg/dL (0.0-1.0); CALCIUM 9.2 mg/dL (8.4-10.2); CREATININE, serum 2.1 (0.52-1.25); POTASSIUM 4.2 mmol/L (3.4-5.0); TOTAL PROTEIN 7.6 gm/dL (6.4-8.2)
== END ==
LOC: COL.LAB 11:08
PROVIDERS: Internal Medicine Nephrology
DX: E11.65 Type 2 diabetes mellitus with hyperglycemia (principal); N18.3 Chronic kidney disease, stage 3 (moderate)